=== PATIENT | male | born 1965 | race Caucasian/White ===

== ENCOUNTER 2022-07-29 06:28 | Emergency (ER) | payer BC ==
[~2022-07-29] VITALS: Ht 193 cm; Wt 119.0 kg
[2022-07-29] MEDS ORDERED: TOPUD PO (09:14)
[2022-07-29 09:41] VITALS: BP 126/75
== END 2022-07-29 09:42 | disposition home or self-care (01) ==
LOC: ER 06:28
DX: S09.8XXA Other specified injuries of head, initial encounter (principal); S20.219A Contusion of unspecified front wall of thorax, initial encounter; S00.03XA Contusion of scalp, initial encounter; V43.52XA Car driver injured in collision with other type car in traffic accident, initial encounter; Y93.89 Activity, other specified; Y92.410 Unspecified street and highway as the place of occurrence of the external cause
CPT/HCPCS: 71045; 99284